=== PATIENT | male | born 1975 | race African-American/Black ===

== ENCOUNTER → 2021-01-07 | Outpatient (REF) ==
--- NOTE | 2021-01-07 11:00 | REP ---
INDICATION: DDD. COMPARISON: None. TECHNIQUE: Three views lumbosacral spine. FINDINGS: There is no compression fracture or malalignment. There is normal lumbar lordosis. There is mild spurring of L5. There is [id number] disc space narrowing at L5-S1 with subchondral sclerosis. There is also spurring and sclerosis at the posterior facet joints at that level. The posterior elements are intact. There is mild sclerosis at the left sacroiliac joint. IMPRESSION: No fracture or dislocation. Degenerative changes L5-S1 level. <Electronically signed by Pola Huber > 01/07/21 [id number]
--- NOTE | 2021-01-07 11:04 | REP ---
INDICATION: DDD COMPARISON: None. TECHNIQUE: Four views right hand. FINDINGS: There is no acute fracture or dislocation. There is mild joint space narrowing and subchondral sclerosis at the 3rd and 4th distal interphalangeal joints. There is persistent mild flexion at the 4th DIP joint. There is a benign-appearing well-defined cystic structure in the tuft of the 5th distal phalanx measuring approximately 3 mm in diameter. IMPRESSION: No fracture or dislocation. Mild degenerative changes 3rd and 4th DIP joints. Mild persistent flexion of the 4th DIP joint. Small benign appearing cystic structure tuft 5th distal phalanx. <Electronically signed by Pola Huber > 01/07/21 1100
== END ==
LOC: M RAD 09:13
PROVIDERS: ATTEND Internal Medicine
DX: M54.5 Low back pain (principal)